=== PATIENT | female | born 1970 | race Two or more races ===

== ENCOUNTER 2022-03-21 15:35 | Outpatient (AMB) | payer MEDICAID, SELFPAY ==
--- NOTE | 2022-03-22 10:56 | RT.TREATMENT ---
Office Procedures RT Procedures Procedures EEG Extended Monitoring Awake/Drowsy: Yes
--- NOTE | 2022-03-22 11:04 | RT.TREATMENT ---
Office Procedures RT Procedures Procedures EEG Extended Monitoring Awake/Drowsy: Yes
== END 2022-03-21 17:04 | disposition home or self-care (01) ==
LOC: HODRTX 15:35
PROVIDERS: Visit Provider Family Medicine
DX: M79.2 Neuralgia and neuritis, unspecified (principal)

== ENCOUNTER 2024-09-26 07:00 | Day surgery (SDC) | payer MEDICAID, SELFPAY ==
[2024-09-25 14:34] VITALS: BMI 26.6
[2024-09-26] VITALS (8 sets, daily range): BP systolic 104–144; BP diastolic 58–85; PULSE 78–99; RESP 15–20; TEMP 36.7–37.2; O2SAT 97–100; BMI 26.4
[2024-09-26] MEDS: fentaNYL CIT INJ 50 mCg/ML AMP 2ML (ASD USE ONLY) IV (08:01)
[2024-09-26] MEDS: DiphenhydrAMINE INJ 50 MG/ML VIAL 25 MG IV (08:01)
[2024-09-26] MEDS: MIDAZOLAM INJ 1 MG/ML VIAL 2 ML (ASD USE ONLY) 2 MG IV (08:01)
== END 2024-09-26 09:05 | disposition home or self-care (01) ==
PROVIDERS: PCP Nurse Practitioner Primary Care; Referring Provider Surgery; Visit Provider Surgery
PROC: 0DBE8ZX Excision of Large Intestine, Via Natural or Artificial Opening Endoscopic, Diagnostic (ICD-10-PCS; CPT 45380; principal; 2024-09-26 07:30)
DX: K64.0 First degree hemorrhoids (principal); K64.4 Residual hemorrhoidal skin tags
CPT/HCPCS: 45378; 81025; J1200; J2250; J3010

== ENCOUNTER → 2025-02-17 | Outpatient (CLI) | payer MEDICAID, SELFPAY ==
--- NOTE | 2025-02-17 13:45 | XR_ITS ---
Examination: Screening digital mammography, bilateral Computer aided detection 3-D breast Tomosynthesis, bilateral Date and time of exam: February 17, 2025 1336 hours Compared to mammograms dating to November 11, 2015 Indication: Screening Technique: Nonmagnified MLO, CC views of the breasts to been obtained, reconstructed from 3-D Tomosynthesis images. R2 computer aided detection program utilized for evaluation of suspicious masses and/or abnormal calcifications. 3-D Tomosynthesis images obtained. Findings: Scattered areas of fibroglandular density. Scar formation upper outer right breast Benign calcifications. No interval suspicious masses Impression: BI-RADS category II: Benign Findings. Recommend 1 year follow-up mammogram.
== END | disposition home or self-care (01) ==
LOC: CDIM 13:23
PROVIDERS: Referring Provider Nurse Practitioner Family; Visit Provider Nurse Practitioner Family
DX: Z12.31 Encounter for screening mammogram for malignant neoplasm of breast (principal); R92.323 Mammographic fibroglandular density, bilateral breasts; R92.1 Mammographic calcification found on diagnostic imaging of breast
CPT/HCPCS: 77063; 77067

== ENCOUNTER → 2025-03-20 | Outpatient (CLI) | payer OTHER, SELFPAY ==
--- NOTE | 2025-03-20 14:57 | XR_ITS ---
EXAMINATION: Cervical spine, 5 views Technique: Cervical spine AP, AP odontoid, lateral, bilateral obliques, 5 views Exam date and time: March 20, 2025 1502 hours INDICATIONS: Injury to the neck today, neck pain. FINDINGS: Satisfactory alignment cervical vertebral bodies No cervical fracture Intact odontoid. Moderate to advanced degenerative disc disease C6-C7 with moderate bilateral neural foraminal stenosis IMPRESSION: No acute cervical fracture
== END | disposition home or self-care (01) ==
PROVIDERS: PCP Nurse Practitioner Family; Referring Provider Nurse Practitioner Family; Visit Provider Nurse Practitioner Family
DX: M54.2 Cervicalgia (principal)
CPT/HCPCS: 72050